=== PATIENT | male | born 1995 | race Caucasian/White ===

== ENCOUNTER → 2021-01-02 16:00 | Outpatient (BNVA) | payer SELFPAY | PROVIDERS: Visit Provider Emergency Medicine | DX: R59.0 Localized enlarged lymph nodes (principal); Z20.2 Contact with and (suspected) exposure to infections with a predominantly sexual mode of transmission | CPT/HCPCS: 87491; 87591 ==

== ENCOUNTER → 2021-05-09 16:21 | Outpatient (BNVA) | payer BC, SELFPAY | PROVIDERS: Visit Provider Nurse Practitioner Family | DX: Z20.822 Contact with and (suspected) exposure to COVID-19 (principal) | CPT/HCPCS: 87426; 87635 ==

== ENCOUNTER → 2022-03-12 11:45 | Outpatient (BNVA) | payer BC, SELFPAY | PROVIDERS: Visit Provider Emergency Medicine | DX: R10.9 Unspecified abdominal pain (principal); R11.0 Nausea; R31.9 Hematuria, unspecified; Z84.1 Family history of disorders of kidney and ureter | CPT/HCPCS: 81000 ==

== ENCOUNTER → 2023-07-26 09:59 | Outpatient (BNVA) | payer BC, SELFPAY | PROVIDERS: Visit Provider Nurse Practitioner Family | DX: R68.89 Other general symptoms and signs (principal); B34.9 Viral infection, unspecified | CPT/HCPCS: 87400; 87426 ==

== ENCOUNTER → 2023-10-01 09:57 | Outpatient (BNVA) | payer BC, SELFPAY | PROVIDERS: Visit Provider Nurse Practitioner | DX: R05.9 Cough, unspecified (principal); J20.9 Acute bronchitis, unspecified | CPT/HCPCS: 87400; 87426 ==

== ENCOUNTER 2025-08-15 11:34 | Inpatient (IN) | payer BC, SELFPAY ==
[2025-08-15 11:46] VITALS: BP 123/81; PULSE 82; TEMP 36.7; O2SAT 97; BMI 33.6
--- NOTE | 2025-08-15 11:49 | ECG_ITS ---
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 Measurements Intervals [place] Rate: 84 P: 31 VT: 153 QRS: -17 QRSD: 101 T: 19 QT: 344 QTc: 409 Interpretive Statements SINUS RHYTHM No previous ECG available for comparison Electronically Signed On 08-15-2025 23:39:43 EMERGENCY CARE TECH by Basilia Joshi M.D. [email or web address]
--- NOTE | 2025-08-15 12:22 | W.ED.ABDPA2 ---
HPI - Abdominal Pain General: Chief Complaint: Abdominal Pain Stated Complaint: left side abd pain Time Seen by Provider: 08/15/25 12:22 History of Present Illness: 30-year-old man who presents emergency room with left lower abdominal pain. Been going on for few days. He had some nausea and some constipation. Takes no chronic medications. No vomiting. No chest pain. No altered mental status. No fevers Related Data Home Medications ?Medication ?Instructions ?Recorded ?Confirmed No Known Home Medications 08/15/25 08/15/25 Allergies Allergy/AdvReac Type Severity Reaction Status Date / Time No Known Allergies Allergy Verified 08/15/25 11:53 Review of Systems Narrative: Constitutional symptoms: Negative except as documented in HPI. Skin symptoms: Negative except as documented in HPI. Eye symptoms: Negative except as documented in HPI. ENMT symptoms: Negative except as documented in HPI. Respiratory symptoms: Negative except as documented in HPI. Cardiovascular symptoms: Negative except as documented in HPI. Gastrointestinal symptoms: Negative except as documented in HPI. Genitourinary symptoms: Negative except as documented in HPI. Musculoskeletal symptoms: Negative except as documented in HPI. Neurologic symptoms: Negative except as documented in HPI. Psychiatric symptoms: Negative except as documented in HPI. Endocrine symptoms: Negative except as documented in HPI. [facility] ED PFSH: Medical History (Updated 08/15/25 @ 14:01 by Mary Ellen Eisenberg MD) Family history of kidney stones Social History Smoking and tobacco/nicotine status: former use of tobacco/nicotine Alcohol intake: current Alcohol intake frequency: 3 or more drinks per day Alcohol type: hard liquor Substance/Drug Use: never Physical Exam Narrative: EXAM NARRATIVE: General: Alert, no acute distress. Skin: Warm, dry. Head: Normocephalic, atraumatic. Neck: Supple, trachea midline. Eye: Extraocular movements are intact. Ears, nose, mouth and throat: Tacky oral mucosa Cardiovascular: Regular, Normal peripheral perfusion. Respiratory: Lungs are clear to auscultation, respirations are non-labored, breath sounds are equal, Symmetrical chest wall expansion. Gastrointestinal: Soft, Nontender, Non distended Musculoskeletal: Normal ROM, no deformity. Neurological: Alert and oriented, No focal neurological deficit observed. Psychiatric: Cooperative, appropriate mood & affect. Course Vital Signs: Vital signs: Vital Signs Temperature 98.0 F 08/15/25 11:46 Pulse Rate 89 08/15/25 14:27 Blood Pressure 121/71 08/15/25 14:27 Pulse Oximetry 98 08/15/25 14:27 Oxygen Delivery Me thod Room Air 08/15/25 11:46 MDM - Abdominal Pain Medical Decision Making Medical decision making Patient's reason for coming to the emergency room: Abdominal pain Social determinants: Patient is employed I reviewed the patient's medical record. Patient had a visit to family medicine back in January for abdominal pain. At this time was thought to be a foodborne illness I reviewed the patient's current home meds No chronic home medications Alternate historians: None Differential diagnosis for a patient who presents with left lower quadrant abdominal pain including but not limited to and based on the above HPI, review of systems and physical exam: Diverticulitis. Constipation Ureterolithiasis. Urinary tract infection. colitis. small bowel obstruction. Crohn's flare. Orders placed to evaluate differential diagnosis based on the above differential, HPI and physical exam EKG: Time 11:49 AM. Rate 84. Normal sinus rhythm, No ST-T changes, no ectopy, normal ND & QRS intervals, This was reviewed and interpreted by myself the ER physician at 11:55 AM Lab Review: Laboratory results were reviewed and interpreted by myself the emergency room physician. Leukocytosis with a white count of 13,000. No anemia. No renal failure. Urinalysis is negative for infection. Liver enzymes are normal. CT of the abdomen pelvis: Acute diverticulitis with microperforation. Small developing air-fluid collection with a few locules of paracolic air. 1.3 x 1.7. Not drainable at this time. Radiology does recommend soon follow-up. t Assessment of risk: Level of risk: High risk patient and that this patient does not have any primary care provider and needs follow-up imaging and monitoring for this possible fluid collection. That in his level of pain indicate admission Hospitalization considerations: Patient is being admitted Reexamination: Patient remained stable. No increased work of breathing. No altered mental status. No focal motor deficits. Still quite tender. Consultation: I spoke with Dr. Toussaint who is on-call for general surgery. He will consult on the patient and does agree with it being admitted to the hospitalist. Consultation: I spoke with Dr. Field who is on-call for the hospitalist service who agrees to admission. Assessment and plan: Acute diverticulitis with microperforations Dehydration ?IV Cipro and Flagyl. IV Dilaudid. IV Zofran. IV fluids. -I discussed the patient with the hospitalist on-call who is admitting the patient. - Discussed findings and plan with patient. Answered any questions. - All laboratory values were reviewed and interpreted personally by myself, the ER physician - All imaging was reviewed and interpreted personally by myself, the ER physician. - Evaluation and treatment of this problem were appropriate in the emergency setting Lab Data 08/15/25 12:52 08/15/25 12:52 Labs/Radiology: Radiology Impressions Abdomen/Pelvis CT 08/15/25 12:27 IMPRESSION: 1. Acute diverticulitis with microperforation described above. No drainable abscess or fluid collection. 2. Small developing air/fluid collection with a few locules of pericolonic air. Collection measures 1.3 x 1.7 cm. This is not drainable at this time. 3. Fat-containing umbilical hernia with a small amount of induration. No herniated bowel. 4. Fat-containing LEFT inguinal hernia. 5. Subsegmental atelectasis of the lung bases, RIGHT middle lobe, and lingula. 6. Prior appendectomy. Notified Mary Ellen Eisenberg MD at 08/15/2025 1:54 PM. Laboratory Results WBC 13.08 10^3/uL (3.29-11.43) H 08/15/25 12:52 RBC 4.92 10^6/uL (3.85-5.65) 08/15/25 12:52 Hgb 14.40 g/dL (11.27-16.99) 08/15/25 12:52 Hct 42.7 % (37-53) 08/15/25 12:52 MCV 86.8 fl (82-101) 08/15/25 12:52 MCH 29.3 pg (27-33) 08/15/25 12:52 MCHC 33.7 g/dL (30-55) 08/15/25 12:52 RDW 13.2 % (12.1-15.1) 08/15/25 12:52 Plt Count 178 10^3/cmm (157-399) 08/15/25 12:52 MPV 11.6 fL (7.4-10.4) H 08/15/25 12:52 Neut % (Auto) 75.5 % 08/15/25 12:52 Lymph % (Auto) 15.1 % 08/15/25 12:52 [place] % (Auto) 8.4 % 08/15/25 12:52 Eos % (Auto) 0.4 % 08/15/25 12:52 Baso % (Auto) 0.2 % 08/15/25 12:52 Neut # (Auto) 9.87 10^3/uL (1.8-7.7) H 08/15/25 12:52 Lymph # (Auto) 2.0 10^3/uL (0.8-4.8) 08/15/25 12:52 [place] # (Auto) 1.1 10^3/uL (0.2-0.9) H 08/15/25 12:52 Eos # (Auto) 0.1 10^3/uL (0.0-0.8) 08/15/25 12:52 Baso # (Auto) 0.0 10^3/uL (0.0-0.1) 08/15/25 12:52 Nucleated RBC % (auto) 0 % 08/15/25 12:52 Nucleated RBCs # 0.0 /100WBC 08/15/25 12:52 Sodium 136 mmol/L (136-145) 08/15/25 12:52 Potassium 3.6 mmol/L (3.5-5.1) 08/15/25 12:52 Chloride 101 mmol/L (98-107) 08/15/25 12:52 Carbon Dioxide 23 mmol/L (22-29) 08/15/25 12:52 Anion Gap 15.6 (5-19) 08/15/25 12:52 BUN 9 mg/dL (6-20) 08/15/25 12:52 Creatinine 0.8 mg/dL (0.7-1.2) 08/15/25 12:52 GFR Calculation 112.0 mL/min (90-130) 08/15/25 12:52 Glucose 102 mg/dL (65-115) 08/15/25 12:52 Calculated Osmolality 281 mOsm/kg (285-295) L 08/15/25 12:52 Calcium 9.3 mg/dL (8.5-10.5) 08/15/25 12:52 Total Bilirubin 1.3 mg/dL (0.15-1.2) H 08/15/25 12:52 AST 39 U/L (0-40) 08/15/25 12:52 ALT 65 U/L (0-41) H 08/15/25 12:52 Alkaline Phosphatase 72 U/L (40-130) 08/15/25 12:52 Total Protein 7.3 g/dL (6.6-8.7) 08/15/25 12:52 Albumin 4.3 g/dL (3.5-5.2) 08/15/25 12:52 Globulin 3.0 g/dL (1.3-4.6) 08/15/25 12:52 Lipase 37 U/L (13-60) 08/15/25 12:52 Urine Color [place] (Yellow) A 08/15/25 12:55 Urine Appearance Clear (CLEAR) 08/15/25 12:55 Urine pH 5.5 (5-7) 08/15/25 12:55 Ur Specific [place] 1.024 (1.005-1.030) 08/15/25 12:55 Urine Protein Trace (Negative) A 08/15/25 12:55 Urine Glucose (UA) Negative (Normal) 08/15/25 12:55 Urine Ketones 1+ (Negative) H 08/15/25 12:55 Urine Blood Negative (Negative) 08/15/25 12:55 Urine Nitrate Negative (Negative) 08/15/25 12:55 Urine Bilirubin Negative (Negative) 08/15/25 12:55 Urine Urobilinogen 1.0 mg/dL (Negative) 08/15/25 12:55 Ur Leukocyte Esterase Negative (Negative) 08/15/25 12:55 Urine RBC 0-2 /hpf (0-2) 08/15/25 12:55 Urine WBC 0-5 /hpf (0-5) 08/15/25 12:55 Ur Squamous Epith Cells 0-5 /hpf (0-5) 08/15/25 12:55 Amorphous Sediment Not Reportable 08/15/25 12:55 Urine Bacteria None seen /hpf (NONE) 08/15/25 12:55 Hyaline Casts 0.81 /lpf 08/15/25 12:55 All radiology interpretation(s) finalized by discharge Discharge Plan Discharge Patient Disposition: Admitted As Inpatient Clinical Impression: Diverticulitis, Dehydration Condition: Stable Coding Level of Care Code ED Cotton Classer for Mitch Talavera
--- NOTE | 2025-08-15 12:27 | CT_ITS ---
WS: [id number] CT ABDOMEN PELVIS TECHNIQUE: Contrast-enhanced CT of the abdomen and pelvis with coronal and sagittal reformatted images. CLINICAL INFORMATION: Abdominal pain COMPARISON: None. DLP: 869.[address] scans at [facility] use at least one of these dose optimization techniques: automated exposure control; mA and/or kV adjustment per patient size (includes targeted exams where dose is matched to clinical indication); or iterative reconstruction. FINDINGS: Hepatomegaly. Fatty liver. Normal portal vein and splenic vein. Gallbladder is contracted. Sigmoid diverticulosis. Inflammatory stranding and edema about the distal descending colon in the LEFT lower quadrant and mid sigmoid colon compatible with acute diverticulitis. Surrounding inflammatory stranding and edema. Associated bowel wall thickening. No drainable abscess or fluid collection. Few small locules of adjacent air with a tiny trace of fluid about the mid sigmoid colon compatible with microperforation. Subsegmental atelectasis in the lung bases. Subsegmental atelectasis in the RIGHT middle lobe and lingula. Normal GE junction. Small splenule. Normal renal parenchymal enhancement. Normal caliber abdominal aorta. Tiny esophageal hiatal hernia. Normal caliber abdominal aorta. Celiac and SMA are patent. Fat- containing umbilical hernia with a small amount of induration. No herniated bowel. Fat-containing LEFT inguinal hernia. CT/CT abdomen pelvis w con* [id number] IMPRESSION: 1. Acute diverticulitis with microperforation described above. No drainable ab scess or fluid collection. 2. Small developing air/fluid collection with a few locules of pericolonic air . Collection measures 1.3 x 1.7 cm. This is not drainable at this time. 3. Fat-containing umbilical hernia with a small amount of induration. No herni ated bowel. 4. Fat-containing LEFT inguinal hernia. 5. Subsegmental atelectasis of the lung bases, RIGHT middle lobe, and lingula. 6. Prior appendectomy. Notified Mary Ellen Eisenberg MD at 08/15/2025 1:54 PM.
--- NOTE | 2025-08-15 12:54 | PC.NURSE ---
educated pt on need for urine sample, pt states attempted but unable at this time.
[2025-08-15 12:57] VITALS: BP 125/80; PULSE 88; O2SAT 97
[2025-08-15 13:12] LABS: Hematocrit 42.7 % (37-53); Hemoglobin 14.40 g/dL (11.27-16.99); Mean Corpuscular HGB Conc 33.7 g/dL (30-55); Mean Corpuscular Hemoglobin 29.3 pg (27-33); Mean Corpuscular Volume 86.8 fl (82-101); Nucleated Red Blood Cells % 0 %; Platelet Count 178 10^3/cmm (157-399); Red Blood Count 4.92 10^6/uL (3.85-5.65); White Blood Count 13.08 10^3/uL (3.29-11.43)
[2025-08-15] MEDS: iohexol 350 mg/mL 500 mL Btl (per mL) IV (13:24)
[2025-08-15 13:26] LABS: Glucose Urine UA Negative (Normal); Nitrate Urine Negative (Negative); Specific Gravity, Urine 1.024 (1.005-1.030)
[2025-08-15 13:29] LABS: Alanine Aminotransferase 65 U/L (0-41); Albumin Level 4.3 g/dL (3.5-5.2); Alkaline Phosphatase 72 U/L (40-130); Anion Gap 15.6 (5-19); Aspartate Amino Transferase 39 U/L (0-40); Blood Urea Nitrogen 9 mg/dL (6-20); Calcium 9.3 mg/dL (8.5-10.5); Carbon Dioxide 23 mmol/L (22-29); Chloride 101 mmol/L (98-107); Globulin 3.0 g/dL (1.3-4.6); Glucose 102 mg/dL (65-115); Lipase 37 U/L (13-60); Osmolality Calculated 281 mOsm/kg (285-295); Potassium 3.6 mmol/L (3.5-5.1); Sodium 136 mmol/L (136-145); Total Protein 7.3 g/dL (6.6-8.7)
[2025-08-15 13:31] LABS: Add Urine Microscopic? YES
[2025-08-15] MEDS: ondansetron 2 mg/ML SDV 2 mL 4 MG IVP (14:04)
[2025-08-15] MEDS: HYDROmorphone 0.5 MG/0.5 ML INJ 1 MG IVP (14:04)
[2025-08-15] MEDS: metroNIDAZOLE IV 500 MG/100 ML PREMIX 100 MG IV ×2 (14:07→22:48)
--- NOTE | 2025-08-15 14:22 | PM.CONSULT ---
Providers/Reason For Consult Consulting Physician/Specialty*: General Surgery Reason for Consult*: Diverticulitis with perforation History of Present Illness History of Present Illness Pieter Garcia is a 30 year old male with history of previous episode of diverticulitis with perforation. He presents to the hospital complaining of abdominal pain especially in the left hemiabdomen, the pain started 3 days ago he has also have had difficulty having bowel movements. CT scan done in the ER showed evidence of acute diverticulitis with perforation and a small collection of air and fluid measuring around 2 cm. Review of Systems General: Reports: 10 or more systems reviewed and unremarkable except in HPI and below Medications/Allergies Home Medications ?Medication ?Instructions ?Recorded ?Confirmed ?Last Taken ?Type No Known Home Medications 08/15/25 08/15/25 Unknown History Allergies Allergy/AdvReac Type Severity Reaction Status Date / Time No Known Allergies Allergy Verified 08/15/25 11:53 Current Medications Generic Name Dose Route Start Last Admin Trade Name Freq PRN Reason Stop Dose Admin Ciprofloxacin/Dextrose 400 mg in 200 mls @ 200 mls/hr 08/15/25 13:54 08/15/25 14:07 Cipro IV 08/15/25 14:53 200 mls/hr ONCE ONE Administration Protocol Metronidazole 500 mg in 100 mls @ 100 mls/hr 08/15/25 13:54 08/15/25 14:07 Flagyl Iv IV 08/15/25 14:53 100 mls/hr ONCE ONE Administration Sodium Chloride 1,000 mls @ 999 mls/hr 08/15/25 14:00 08/15/25 14:07 Sodium Chloride 0.9% IV 08/15/25 15:00 999 mls/hr .Q1H1M ONE Administration PFSH Acute PFSH: Medical History (Updated 08/15/25 @ 14:01 by Mary Ellen Eisenberg MD) Family history of kidney stones Social History Smoking and tobacco/nicotine status: former use of tobacco/nicotine Alcohol intake: current Alcohol intake frequency: 3 or more drinks per day Alcohol type: hard liquor Substance/Drug Use: never Vitals/I&O/Wt Last Vital Signs Temp 98.0 F 08/15/25 11:46 Pulse 88 08/15/25 12:57 BP 125/80 08/15/25 12:57 Pulse Ox 97 08/15/25 12:57 O2 Del Method Room Air 08/15/25 11:46 Weight last 48 hrs Weight 215 lb Physical Exam GI: OTHER: Benign abdominal exam, there is no peritonitis. the abdomen is tender on the left lower quadrant Data 08/15/25 12:52 08/15/25 12:52 A&P Assessment and plan 1. Diverticulitis: Plan: 30-year-old male with send: Episode of diverticulitis requiring hospital stay. Currently abdominal exam is benign no need for surgical intervention. I agree with conservative management patient can be kept n.p.o. today with IV fluids and antibiotics and depending on how he is doing tomorrow we can advance to a clear liquid diet. In the case of clinical worsening we will plan to repeat a CT scan to evaluate if the collection is to be drained. Once this acute episode resolves patient should be evaluated by colorectal surgery for an elective sigmoid colectomy to prevent further episodes of complicated diverticulitis, he shows understanding and agrees. General surgery will continue to follow while the patient is in house. PDMP PDMP Reviewed: Not Reviewed Coding Level of Care Code Acute Code for [facility] Diagnoses Diverticulitis K57.92
[2025-08-15 14:27] VITALS: BP 121/71; PULSE 89; O2SAT 98
--- NOTE | 2025-08-15 15:03 | P.HP_ITS ---
Providers/Chief Complaint 2 Admitting Physician: Kashif Field MD Chief Complaint: Left sided abdominal pain History of Present Illness Pieter Garcia is a 30 year old male with PMH of diverticulitis with perforation and polysubstance use (tobacco, EtOH and marijuana). Patient presented to the ED/12/05 out of concern for a 3-day history of left lower quadrant abdominal pain. Initially noted on Wednesday night. Pain progressively worsening, does not radiate to the back or extremities, and characterizes stabbing with associated burning sensation. Magnitude 7-8/10. Associated symptoms of nausea (without vomiting) and ED course reviewed VSS. T 98.0?F BP 123/81 HR 82 RR 16 SpO2 97% on room air Labs 08/15/25 1252 Hemogram WBC 13.08 Hgb 14.4 PLT 178 Chemistry Na 136 K 3.6 Cl 101 Ca 9.3 CO2 23 AG 15.6 BUN 9 Cr 0.8 AST 39 ALT 69 ALP 72 T.Bili 1.3 Urinalysis SG 1.025 protein (trace) ketones (1+) CT Abdomen-Pelvis w/ contrast 1. Acute diverticulitis with microperforation described above. No drainable abscess or fluid collection. 2. Small developing air/fluid collection with a few locules of pericolonic air. Collection measures 1.3 x 1.7 cm. This is not drainable at this time. 3. Fat-containing umbilical hernia with a small amount of induration. No herniated bowel. 4. Fat-containing LEFT inguinal hernia. 5. Subsegmental atelectasis of the lung bases, RIGHT middle lobe, and lingula. 6. Prior appendectomy. In ED received 1354 ciprofloxacin 400 mg IV 1454 metronidazole 500 mg IV 1357 ondansetron 4 mg IV 1357 hydromorphone 1 mg IV 1400 1L NS bolus Review of Systems 2 General: Reports: 10 or more systems reviewed and unremarkable except in HPI and below Medications/Allergies Home Medications ?Medication ?Instructions ?Recorded ?Confirmed ?Last Taken ?Type No Known Home Medications 08/15/2512/05 Unknown History Allergies Allergy/AdvReac Type Severity Reaction Status Date / Time No Known Allergies Allergy Verified 08/15/25 11:53 Additional Medication Information Home medications discussed with patient. States he does not take any prescribed or OTC medications routinely. He has taken the combination of acetaminophen and ibuprofen this admission to help with abdominal discomfort. PFSH Acute 2 PFSH: Medical History Family history of kidney stones Social History Smoking and tobacco/nicotine status: former use of tobacco/nicotine Alcohol intake: current Alcohol intake frequency: 3 or more drinks per day Alcohol type: hard liquor Substance/Drug Use: never Vitals/I&O/Wt Last Vital Signs Temp 98.0 F 08/15/25 11:46 Pulse 89 08/15/25 14:27 BP 121/71 08/15/25 14:27 Pulse Ox 98 08/15/25 14:27 O2 Del Method Room Air 08/15/25 11:46 Weight last 48 hrs Weight 97.522 kg Physical Exam 2 Narrative: Constitutional: NAD, obese habitus, disheveled appearing Head: NC/AT Eyes: PERRLA, EOMI Ears: Normal external ears. Hearing intact to normal voice. Nose: Normal external nose. No epistaxis. Throat: Dry MM Respiratory: CTAB. No accessory muscle use. On room air. Cardiovascular: Regular. No murmur. Extremities: No edema bilaterally Gastrointestinal: Central obesity. ND. + BS LLQ TTP. No evidence of peritonitis. Genitourinary: No perkins catheter Musculoskeletal: Moves all extremities. Skin: No bruising or open lesions noted Data 08/15/25 12:52 08/15/25 12:52 Other Labs: I have personally reviewed below listed labs that were done in ED on presentation. Labs 08/15/25 1252 Hemogram WBC 13.08 Hgb 14.4 PLT 178 Chemistry Na 136 K 3.6 Cl 101 Ca 9.3 CO2 23 AG 15.6 BUN 9 Cr 0.8 AST 39 ALT 69 ALP 72 T.Bili 1.3 Urinalysis SG 1.025 protein (trace) ketones (1+) CT Abd/Pel: Radiologist's impression: [place] Hepatomegaly. Fatty liver. Normal portal vein and splenic vein. Gallbladder is contracted. Sigmoid diverticulosis. Inflammatory stranding and edema about the distal descending colon in the LEFT lower quadrant and mid sigmoid colon compatible with acute diverticulitis. Surrounding inflammatory stranding and edema. Associated bowel wall thickening. No drainable abscess or fluid collection. Few small locules of adjacent air with a tiny trace of fluid about the mid sigmoid colon compatible with microperforation. Subsegmental atelectasis in the lung bases. Subsegmental atelectasis in the RIGHT middle lobe and lingula. Normal GE junction. Small splenule. Normal renal parenchymal enhancement. Normal caliber abdominal aorta. Tiny esophageal hiatal hernia. Normal caliber abdominal aorta. Celiac and SMA are patent. Fat- containing umbilical hernia with a small amount of induration. No herniated bowel. Fat-containing LEFT inguinal hernia. Impression: 1. Acute diverticulitis with microperforation described above. No drainable abscess or fluid collection. 2. Small developing air/fluid collection with a few locules of pericolonic air. Collection measures 1.3 x 1.7 cm. This is not drainable at this time. 3. Fat-containing umbilical hernia with a small amount of induration. No herniated bowel. 4. Fat-containing LEFT inguinal hernia. 5. Subsegmental atelectasis of the lung bases, RIGHT middle lobe, and lingula. 6. Prior appendectomy. A&P Assessment and plan 1. Acute diverticulitis: 2. Acute abdominal pain: 3. Alcohol use disorder: Plan: # Acute diverticulitis CT A/P acute diverticulitis w/ microperforation. No drainable abscess or fluid collection. Very small developing collection (1.3 x 1.1 cm) with a few locules of air. WBC 13.08 - General surgery consulted in ED (evaluated), no surgical intervention at this time - Keep n.p.o. - MIVF LR at 125 x16 hrs - ABX, continue IV cipro and flagyl - Pain control - CBC, CMP in am - Will need serial imaging to monitor for abscess evolution # EtOH use disorder Admits to drinking 2-3 beers daily Denies prior DTs or EtOH withdrawal seizures - Monitor for symptoms of EtOH withdrawal # Transaminitis # Elevated T.Bilirubin AST 39 ALT 65 T.Bili 1.3 - Trend VTE PPx: Risk is low. SCDs only. PDMP PDMP Reviewed: Not Reviewed Attestations 2 Medical Necessity Statement*: Admitted under inpatient status for management of adynamic ileus. Given complexity of patient's presentation, co-morbid conditions, and required intensity of treatment, a hospitalization exceeding two midnights is anticipated. Currently requires IV hydration, pain medications, electrolyte monitoring/replacement, serial abdominal exams and multidisciplinary oversight. Coding Level of Care Code 19111 Diagnoses Acute diverticulitis K57.92 Acute abdominal pain R10.9 Alcohol use disorder F10.90
[2025-08-15 15:57] VITALS: BP 123/84; PULSE 86; O2SAT 96
[2025-08-15 16:09] VITALS: BMI 33.8
[2025-08-15 16:14] VITALS: BP 145/96; PULSE 89; RESP 16; TEMP 36.5; O2SAT 97
--- NOTE | 2025-08-15 19:43 | PC.NURSE ---
This nurse ask patient if alcohol was consumed at bedtime or any other time. He stated 4-5 Fireball Shots and two mixed drinks most nights but really depends on the day, could be more.
[2025-08-15 20:00] VITALS: BP 128/78; PULSE 103; RESP 18; TEMP 37.6; O2SAT 93
[2025-08-15] MEDS: HYDROmorphone 0.5 MG/0.5 ML INJ IVP (20:07)
[2025-08-16] VITALS: BP 130/79; PULSE 100; RESP 16; TEMP 37.4; O2SAT 95
--- NOTE | 2025-08-16 00:11 | PC.NURSE ---
duplicate order for flagyl. one order dc'd
[2025-08-16] MEDS: HYDROmorphone 0.5 MG/0.5 ML INJ IVP (01:29)
[2025-08-16 04:00] VITALS: BP 146/80; PULSE 98; RESP 16; TEMP 37.2; O2SAT 96
[2025-08-16] MEDS: metroNIDAZOLE IV 500 MG/100 ML PREMIX 100 MG IV ×3 (05:06→21:05)
[2025-08-16 06:14] LABS: Hematocrit 41.9 % (37-53); Hemoglobin 14.00 g/dL (11.27-16.99); Mean Corpuscular HGB Conc 33.4 g/dL (30-55); Mean Corpuscular Hemoglobin 29.7 pg (27-33); Mean Corpuscular Volume 88.8 fl (82-101); Nucleated Red Blood Cells % 0 %; Platelet Count 166 10^3/cmm (157-399); Red Blood Count 4.72 10^6/uL (3.85-5.65); White Blood Count 12.69 10^3/uL (3.29-11.43)
[2025-08-16 06:31] LABS: Alanine Aminotransferase 48 U/L (0-41); Albumin Level 3.9 g/dL (3.5-5.2); Alkaline Phosphatase 66 U/L (40-130); Anion Gap 14.9 (5-19); Aspartate Amino Transferase 22 U/L (0-40); Blood Urea Nitrogen 6 mg/dL (6-20); Calcium 9.1 mg/dL (8.5-10.5); Carbon Dioxide 23 mmol/L (22-29); Chloride 100 mmol/L (98-107); Globulin 3.0 g/dL (1.3-4.6); Glucose 94 mg/dL (65-115); Osmolality Calculated 275 mOsm/kg (285-295); Potassium 3.9 mmol/L (3.5-5.1); Sodium 134 mmol/L (136-145); Total Protein 6.9 g/dL (6.6-8.7)
[2025-08-16 07:33] VITALS: BP 123/75; PULSE 98; RESP 16; TEMP 36.8; O2SAT 94
--- NOTE | 2025-08-16 07:34 | P.PN_ITS ---
Subjective 2 Subjective: 30-year-old female admitted with perfora vickie diverticulitis with a small abscess. Blood pressure over the last 24 hours. Abdominal pain has improved, he did have a bowel movement yesterday. Vitals/I&O/Wt Last Vital Signs Temp 98.2 F 08/16/25 07:33 Pulse 98 08/16/25 07:33 Resp 16 08/16/25 07:33 BP 123/75 08/16/25 07:33 Pulse Ox 94 08/16/25 07:33 O2 Del Method Room Air 08/16/25 07:33 08/15/25 08/16/25 08/16/25 22:59 06:59 14:59 Intake Total 1420 / 1420 1400 / 2820 Balance 1420 / 1420 1400 / 2820 Weight last 48 hrs Weight 214 lb 5 oz Weight 216 lb 0.848 oz Weight 215 lb Physical Exam 2 GI: OTHER: Abdomen is soft minimal tender to palpation in the left flank nondistended Data 08/16/25 05:59 08/16/25 05:59 A&P Assessment and plan 1. Acute diverticulitis: Plan: Patient is doing well showing good progression white count has slightly improved. With this findings I think we can progress his diet to clear liquid diet today and if he is tolerating we can continue advancement tomorrow morning. All other management per medical team is appreciated. PDMP PDMP Reviewed: Not Reviewed Attestations 2 Medical Necessity Statement*: Per medical Coding [facility] Acute diverticulitis K57.92
[2025-08-16 11:27] VITALS: BP 147/79; PULSE 90; RESP 16; TEMP 36.6; O2SAT 95
--- NOTE | 2025-08-16 15:09 | P.PN_ITS ---
Subjective 2 Subjective: 30-year-old male admitted with diverticu litis Afebrile, tolerating antibiotics wants to advance diet Vitals/I&O/Wt Last Vital Signs Temp 97.8 F 08/16/25 11:27 Pulse 90 08/16/25 11:27 Resp 16 08/16/25 11:27 BP 147/79 08/16/25 11:27 Pulse Ox 95 08/16/25 11:27 O2 Del Method Room Air 08/16/25 11:27 08/16/25 08/16/25 08/16/25 06:59 14:59 22:59 Intake Total 1400 / 2820 897.917 / 897.917 Balance 1400 / 2820 897.917 / 897.917 Weight last 48 hrs Weight 97.211 kg Weight 98 kg Weight 97.522 kg Physical Exam 2 Narrative: General: No acute distress Cardiovascular: Regular rhythm Lungs: Clear to auscultation Abdomen: Soft nontender MSK no edema or rashes Data 08/16/25 05:59 08/16/25 05:59 A&P Assessment and plan 1. Acute diverticulitis: Plan: # Acute diverticulitis CT A/P acute diverticulitis w/ microperforation. No drainable abscess or fluid collection. Very small developing collection (1.3 x 1.1 cm) with a few locules of air. WBC 13.08 - General surgery consulted in ED (evaluated), no surgical intervention at this time - Continue antibiotics IV fluids advance diet if okay with surgery # EtOH use disorder Admits to drinking 2-3 beers daily Denies prior DTs or EtOH withdrawal seizures - Monitor for symptoms of EtOH withdrawal - Will need to be on CIWA protocol # Transaminitis # Elevated T.Bilirubin - Trend VTE PPx: Risk is low. SCDs only. PDMP PDMP Reviewed: Not Reviewed Attestations 2 Medical Necessity Statement*: Antibiotic Coding Level of Care Code 48590 Diagnoses Acute diverticulitis K57.92
[2025-08-16 15:34] VITALS: BP 144/95; PULSE 94; RESP 16; TEMP 36.7; O2SAT 95
[2025-08-16 22:00] VITALS: BP 130/69; PULSE 106; RESP 17; TEMP 36.7; O2SAT 93
[2025-08-17 01:00] VITALS: BP 109/66; PULSE 81; RESP 17; TEMP 37.2; O2SAT 95
[2025-08-17] MEDS: metroNIDAZOLE IV 500 MG/100 ML PREMIX 100 MG IV (04:56)
[2025-08-17 05:00] VITALS: BP 144/81; PULSE 77; RESP 17; TEMP 36.6; O2SAT 98
[2025-08-17 07:23] LABS: Hematocrit 42.2 % (37-53); Hemoglobin 14.00 g/dL (11.27-16.99); Mean Corpuscular HGB Conc 33.2 g/dL (30-55); Mean Corpuscular Hemoglobin 29.1 pg (27-33); Mean Corpuscular Volume 87.7 fl (82-101); Nucleated Red Blood Cells % 0 %; Platelet Count 220 10^3/cmm (157-399); Red Blood Count 4.81 10^6/uL (3.85-5.65); White Blood Count 6.60 10^3/uL (3.29-11.43)
[2025-08-17 07:40] VITALS: BP 136/89; PULSE 81; RESP 16; TEMP 36.4; O2SAT 95
--- NOTE | 2025-08-17 08:50 | P.PN_ITS ---
Subjective 2 Subjective: Excellent progression over the last 24 hours, abdominal pain has almost completely resolved tolerating diet having bowel movements Vitals/I&O/Wt Last Vital Signs Temp 97.5 F L 08/17/25 07:40 Pulse 81 08/17/25 07:40 Resp 16 08/17/25 07:40 BP 136/89 08/17/25 07:40 Pulse Ox 95 08/17/25 07:40 O2 Del Method Room Air 08/17/25 01:00 08/16/25 08/17/25 08/17/25 22:59 06:59 14:59 Intake Total 1400 / 2297.917 1700 / 3997.917 702.083 / 702.083 Balance 1400 / 2297.917 1700 / 3997.917 702.083 / 702.083 Weight last 48 hrs Weight 214 lb Weight 214 lb 5 oz Weight 216 lb 0.848 oz Weight 215 lb Physical Exam 2 GI: OTHER: Benign abdominal exam abdomen soft nontender nondistended Data 08/17/25 07:16 08/16/25 05:59 A&P Assessment and plan 1. Acute diverticulitis: Plan: This is a 30-year-old male admitted with perforated acute diverticulitis with a small abscess, has received antibiotic therapy over the last 48 hours with good response. His white count is normal today vital signs are normal abdominal pain has almost completely resolved. I am okay with patient transitioning to the outpatient setting on a GI soft diet. He needs to complete a 10-day course of antibiotics as outpatient, he can follow-up with general surgery in 2 weeks and at that time we will give him a referral to colorectal for an elective sigmoid colectomy PDMP PDMP Reviewed: Not Reviewed Attestations 2 Medical Necessity Statement*: Per medical team Coding Level of Care Code Acute Code for [facility] Diagnoses Acute diverticulitis K57.92
[2025-08-17 11:54] VITALS: BP 130/93; PULSE 88; RESP 17; TEMP 36.5; O2SAT 94
--- NOTE | 2025-08-17 15:19 | PM.DCS ---
Discharge Providers Date of Admission: 08/15/25 15:58 Date of Discharge: August 17, 2025 Attending Provider at Admission: Kashif Field MD Attending Provider at Discharge: Kashif Field MD Diagnoses at Discharge Discharge Diagnosis 1. Acute diverticulitis: Reason for Visit Reason for Visit: Left sided abdominal pain Hospital Course Hospital Course the patient was admitted with diverticulitis. surgery was consulted. labs were monitored. cultures were followed. placed on ciwa protocol. diete advanced. discharged in improved condition. see la med rec Physical Exam Narrative: General: No acute distress Cardiovascular: Regular rhythm Lungs: Clear to auscultation Abdomen: Soft nontender MSK no edema or rashes Discharge Data Studies Completed and Pending Completed Studies During Hospitalization Category Date Time Status CT abdomen pelvis w con* [id number] Stat Cat Scan 08/15/25 12:27 Completed Radiology Impressions Abdomen/Pelvis CT 08/15/25 12:27 IMPRESSION: 1. Acute diverticulitis with microperforation described above. No drainable abscess or fluid collection. 2. Small developing air/fluid collection with a few locules of pericolonic air. Collection measures 1.3 x 1.7 cm. This is not drainable at this time. 3. Fat-containing umbilical hernia with a small amount of induration. No herniated bowel. 4. Fat-containing LEFT inguinal hernia. 5. Subsegmental atelectasis of the lung bases, RIGHT middle lobe, and lingula. 6. Prior appendectomy. Notified Mary Ellen Eisenberg MD at 08/15/2025 1:54 PM. Laboratory Results WBC 6.60 10^3/uL (3.29-11.43) 08/17/25 07:16 RBC 4.81 10^6/uL (3.85-5.65) 08/17/25 07:16 Hgb 14.00 g/dL (11.27-16.99) 08/17/25 07:16 Hct 42.2 % (37-53) 08/17/25 07:16 MCV 87.7 fl (82-101) 08/17/25 07:16 MCH 29.1 pg (27-33) 08/17/25 07:16 MCHC 33.2 g/dL (30-55) 08/17/25 07:16 RDW 13.2 % (12.1-15.1) 08/17/25 07:16 Plt Count 220 10^3/cmm (157-399) D 08/17/25 07:16 MPV 11.1 fL (7.4-10.4) H 08/17/25 07:16 Neut % (Auto) 63.8 % 08/17/25 07:16 Lymph % (Auto) 25.6 % 08/17/25 07:16 [place] % (Auto) 8.2 % 08/17/25 07:16 Eos % (Auto) 1.4 % 08/17/25 07:16 Baso % (Auto) 0.5 % 08/17/25 07:16 Neut # (Auto) 4.22 10^3/uL (1.8-7.7) 08/17/25 07:16 Lymph # (Auto) 1.7 10^3/uL (0.8-4.8) 08/17/25 07:16 [place] # (Auto) 0.5 10^3/uL (0.2-0.9) 08/17/25 07:16 Eos # (Auto) 0.1 10^3/uL (0.0-0.8) 08/17/25 07:16 Baso # (Auto) 0.0 10^3/uL (0.0-0.1) 08/17/25 07:16 Nucleated RBC % (auto) 0 % 08/17/25 07:16 Nucleated RBCs # 0.0 /100WBC 08/17/25 07:16 Sodium 134 mmol/L (136-145) L 08/16/25 05:59 Potassium 3.9 mmol/L (3.5-5.1) 08/16/25 05:59 Chloride 100 mmol/L (98-107) 08/16/25 05:59 Carbon Dioxide 23 mmol/L (22-29) 08/16/25 05:59 Anion Gap 14.9 (5-19) 08/16/25 05:59 BUN 6 mg/dL (6-20) 08/16/25 05:59 Creatinine 0.7 mg/dL (0.7-1.2) 08/16/25 05:59 GFR Calculation 130.7 mL/min (90-130) H 08/16/25 05:59 Glucose 94 mg/dL (65-115) 08/16/25 05:59 Calculated Osmolality 275 mOsm/kg (285-295) L 08/16/25 05:59 Calcium 9.1 mg/dL (8.5-10.5) 08/16/25 05:59 Total Bilirubin 1.0 mg/dL (0.15-1.2) 08/16/25 05:59 AST 22 U/L (0-40) 08/16/25 05:59 ALT 48 U/L (0-41) H 08/16/25 05:59 Alkaline Phosphatase 66 U/L (40-130) 08/16/25 05:59 Total Protein 6.9 g/dL (6.6-8.7) 08/16/25 05:59 Albumin 3.9 g/dL (3.5-5.2) 08/16/25 05:59 Globulin 3.0 g/dL (1.3-4.6) 08/16/25 05:59 Lipase 37 U/L (13-60) 08/15/25 12:52 Urine Color [place] (Yellow) A 08/15/25 12:55 Urine Appearance Clear (CLEAR) 08/15/25 12:55 Urine pH 5.5 (5-7) 08/15/25 12:55 Ur Specific [place] 1.024 (1.005-1.030) 08/15/25 12:55 Urine Protein Trace (Negative) A 08/15/25 12:55 Urine Glucose (UA) Negative (Normal) 08/15/25 12:55 Urine Ketones 1+ (Negative) H 08/15/25 12:55 Urine Blood Negative (Negative) 08/15/25 12:55 Urine Nitrate Negative (Negative) 08/15/25 12:55 Urine Bilirubin Negative (Negative) 08/15/25 12:55 Urine Urobilinogen 1.0 mg/dL (Negative) 08/15/25 12:55 Ur Leukocyte Esterase Negative (Negative) 08/15/25 12:55 Urine RBC 0-2 /hpf (0-2) 08/15/25 12:55 Urine WBC 0-5 /hpf (0-5) 08/15/25 12:55 Ur Squamous Epith Cells 0-5 /hpf (0-5) 08/15/25 12:55 Amorphous Sediment Not Reportable 08/15/25 12:55 Urine Bacteria None seen /hpf (NONE) 08/15/25 12:55 Hyaline Casts 0.81 /lpf 08/15/25 12:55 Vitals Last Vital Signs Temp 97.7 F 08/17/25 11:54 Pulse 88 08/17/25 11:54 Resp 17 08/17/25 11:54 BP 130/93 08/17/25 11:54 Pulse Ox 94 08/17/25 11:54 O2 Del Method Room Air 08/17/25 01:00 Discharge Plan Discharge Patient Disposition: Home Condition: Stable Prescriptions: New ciprofloxacin HCl 500 mg tablet 500 mg PO BID Qty: 14 0RF metronidazole 500 mg tablet 500 mg PO TID Qty: 20 0RF Discharge Order = DC NOW: Discharge Order (Routine); Ordered 08/17/25 Ordered By: Kashif Field Referrals: Guanako Rojas MD [Physician, General Surgery] - 08/29/25 8:55 am Referral Note: Discharge Diet: Regular Discharge Activity: Resume usual activity Patient Instructions: Ciprofloxacin (By mouth), Metronidazole (By mouth) (Flagyl, Flagyl 375, Flagyl ER, Likmez), Diverticulitis (DC), Abdominal Pain (ED), Opioid Safety, Patient Portal & Sean Instructions Activity Restrictions/Additional Instructions: take medicine as prescribed, followup with PCP Discharge Attestations Time Spent in Discharge Care*: less than 30 min Quality Metrics Clinical Quality Measures [ No reported AMI, CVA or VTE this stay] Coding Level of Care Code Acute Code for g Fwd Diagnoses Acute diverticulitis K57.92
--- NOTE | 2025-08-17 15:23 | PC.NURSE ---
Discharge Note Patient discharged to home via private vehicle accompanied by self. Discharge instructions reviewed with patient and/or practice representative. Mobile pharmacy medications and/or prescriptions provided. Belongings/home medications returned.
[2025-08-17 15:24] VITALS: BP 130/93; PULSE 88; RESP 17; TEMP 36.5; O2SAT 94
[2025-08-17 15:35] VITALS: BP 135/85; PULSE 91; RESP 18; TEMP 36.9; O2SAT 94
== END 2025-08-17 16:00 | disposition home or self-care (01) | DRG 392 ==
LOC: ER 15:48 → MEDSURG 16:12
PROVIDERS: Family Medicine; Nurse Practitioner Gerontology; Surgery; Admitting Provider Internal Medicine; Emergency Provider Emergency Medicine; Visit Provider Internal Medicine
DX: K57.20 Diverticulitis of large intestine with perforation and abscess without bleeding (principal); F10.90 Alcohol use, unspecified, uncomplicated; R74.01 Elevation of levels of liver transaminase levels; Z87.891 Personal history of nicotine dependence
CPT/HCPCS: 36415; 74177; 80053; 81001; 83690; 85025; 93005; 96365; 96367; 99285; J0744; J1171; J1885; J2405; J3490; J7030; J7120